=== PATIENT | female | born 1980 | race Caucasian/White ===

== ENCOUNTER 2016-10-07 20:02 | Emergency (ER) | payer SELFPAY ==
[~2016-10-07 20:02] MED LIST: BACTRIM DS TABL1 TA1 PO; BACTROBAN22 GM TOP; BENADRYL25 MG PO; CELEXA; EXCEDRIN GELTAB1 TA1; MEDROL DOSEPAK4 MG DOB; METHADONE PO; NEURONTIN; RANITIDINE HCL150 M1 PO
[2016-10-07 22:48] LABS: URINE SOURCE CLEAN CATCH
[2016-10-07 22:55] LABS: URINE APPEARANCE TURBID; URINE BILIRUBIN NEG (NEG); URINE BLOOD 2+ (NEG); URINE COLOR YELLOW; URINE GLUCOSE NEG (NEG); URINE KETONE NEG (NEG); URINE LEUKOCYTE ESTERASE 3+ (NEG); URINE NITRATE POS (NEG); URINE PROTEIN 2+ (NEG); URINE SPECIFIC GRAVITY 1.014 (1.003-1.035); URINE UROBILINOGEN 0.2 MG/DL (NEG)
[2016-10-07 22:59] LABS: CULTURE INDICATED? YES; URINE BACTERIA AUWI 2+ (NEGATIVE); URINE SQUAMOUS EPITHELIAL CELL OCC /[HPF]; UWBCS1 AUWI INNUM (0-5)
== END 2016-10-08 00:10 | disposition home or self-care (01) ==
LOC: CED 20:02
PROVIDERS: Emergency Medicine
DX: N39.0 Urinary tract infection, site not specified (principal)
CPT/HCPCS: 81003; 87086; 87088; 87186; 99283